=== PATIENT | female | born 1980 | race Two or more races ===

== ENCOUNTER 2024-08-23 07:35 | Emergency (ER) | payer MEDICAID, SELFPAY ==
[2024-08-23 07:37] VITALS: BMI 30.5
[2024-08-23 07:50] VITALS: BP 122/77; PULSE 66; RESP 16; TEMP 37.1; O2SAT 99
--- NOTE | 2024-08-23 08:45 | PD.EDRME ---
Rapid Medical Screening Exam RME Arrival date/time: 08/23/24 07:35 Chief Complaint: Abdominal Pain Time Seen by Provider: 08/23/24 08:30 Vital signs: Vital Signs Temperature 98.7 F 08/23/24 07:50 Pulse Rate 66 08/23/24 07:50 Respiratory Rate 16 08/23/24 07:50 Blood Pressure 122/77 08/23/24 07:50 Pulse Oximetry (%) 99 08/23/24 07:50 Oxygen Delivery Method Room Air 08/23/24 07:50 RME Narrative: 43-year-old patient presents emergency department with complaint of epigastric and right upper quadrant pain since June 2024. Patient states that she saw her PCP and had blood work done. She recently received results of her blood work and was told that it was unremarkable but she states her pain has persisted patient states she feels bloated with excessive belching but denies acid reflux. Patient also states that she feels that the pain starts in her right lower quadrant and migrates to her right upper quadrant. She denies any elevating or aggravating factors. She said her PCP told her to avoid acidic and spicy foods which she states she is done without remission of her pain. She denies fever or chills she denies bloody diarrhea she denies painful urination.
--- NOTE | 2024-08-23 08:48 | XR_ITS ---
Examination: CT abdomen and pelvis without contrast. Coronal 3-D reconstructions. Sagittal 2-D reconstructions. Date and time of exam:August 23, 2024 1227 hrs. Indications: Right lower abdominal pain nausea beginning one month ago CTDI: vol (mGy): 9.65 DLP: (mGycm): 471 Technique: Axial images of the abdomen have been obtained, 3 mm slice thickness Intravenous contrast material has not been administered. Low dose protocols were performed. One or more of the following dose reduction techniques were used; automated exposure control, adjustment of the mA and/or KV according to patient size, use of iterative reconstruction technique. Findings: 12 mm right lobe liver cyst No biliary tract dilatation No gallstones No pancreatic or adrenal mass No renal or ureteral calculi, no hydronephrosis Normal appendix, coronal image 60 No bowel obstruction No diverticulitis Enlarged fundus of uterus with dilated endometrial stripe No adnexal mass Urinary bladder intact Osseous structures intact Impression: Normal appendix No renal or ureteral calculi, no hydronephrosis No bowel obstruction or diverticulitis Enlarged fundus of uterus with dilated endometrial stripe, recommend pelvic sonography follow-up
--- NOTE | 2024-08-23 08:48 | XR_ITS ---
Examination: Abdomen sonogram, Limited Date and time of exam: August 23, 2024 0900 hrs. Indications: Right upper abdominal pain beginning 5 weeks ago Technique: Real-time inman scale transabdominal sonographic images of the upper abdomen obtained. Findings: Normal gallbladder Normal common bile duct 0.4 cm Pancreatic head 2.2 cm Liver 12.8 cm fatty infiltration 20 mm liver cyst no biliary tract dilatation Normal hepatopedal portal venous flow Patent IVC Impression: Normal gallbladder Normal common bile duct
[2024-08-23] MEDS: KETOROLAC INJ 60 MG/2 ML VIAL IM (09:27)
[2024-08-23 10:02] LABS: Basophils # (Auto) 0.1 Thou/mm3 (0.0-0.2); Basophils % (Auto) 1 % (0-2.5); Eosinophils # (Auto) 0.9 Thou/mm3 (0.0-0.5); Eosinophils % (Auto) 17 % (0-10); Hemoglobin 12.7 g/dL (12.0-16.0); Immature Granulocytes % (Auto) 0 % (0-0); Lymphocytes # (Auto) 1.7 Thou/mm3 (1.0-4.8); Lymphocytes % (Auto) 29 % (10-50); Mean Corpuscular HGB Conc 34.3 g/dl (31.0-37.0); Mean Corpuscular Hemoglobin 28.6 pg (25.0-35.0); Mean Corpuscular Volume 83 fL (80-100); Monocytes # (Auto) 0.4 Thou/mm3 (0.0-0.8); Monocytes % (Auto) 7 % (0-12); Neutrophils # (Auto) 2.7 Thou/mm3 (1.8-7.7); Neutrophils % (Auto) 47 % (37-80); Nucleated Red Blood Cell % 0 /100 WBC (0); Platelet Count 255 Thou/mm3 (140-440); RDW Standard Deviation 39.2 fL (36.4-46.3); Red Blood Count 4.44 Miln/mm3 (4.00-5.20); White Blood Count 5.7 Thou/mm3 (3.6-11.0)
[2024-08-23 10:06] LABS: Alanine Aminotransferase 12 U/L (10-49); Albumin/Globulin Ratio 2.2 (1.2-2.2); Alkaline Phosphatase 67 U/L (46-116); Anion Gap 8 (7-16); Aspartate Amino Transferase 10 U/L (0-34); BUN/Creatinine Ratio 16 Ratio (12-20); Bilirubin,Total 1.5 mg/dL (0.3-1.2); Blood Urea Nitrogen 13 mg/dL (9-23); Calcium 9.4 mg/dL (8.3-10.6); Calcium (Corrected) 9.4 mg/dL (8.5-10.1); Carbon Dioxide 24.6 mMol/L (20.0-31.0); Chloride 106 mMol/L (98-107); Creatinine (Component) 0.8 mg/dL (0.6-1.3); Estimated Creatinine Clearance 94.2 mL/min (>60); Globulin 2.3 gm/dL (2.3-3.5); Glucose 88 mg/dL (74-106); Lipase 42 U/L (12-53); Osmolality,Calculated 276 (275-295); Potassium 3.9 mMol/L (3.4-5.1); Sodium 139 mMol/L (136-145); Total Protein 7.3 gm/dL (5.7-8.2); eGFR > 60 See Note
[2024-08-23 10:37] LABS: Collection Type, Urine Voided
[2024-08-23 11:37] LABS: HCG Qualitative,Urine Negative
[2024-08-23 11:41] LABS: Bacteria,Urine Rare; Bilirubin,Urine Negative (Negative); Blood,Urine Negative (Negative); Clarity,Urine Clear (Clear/Hazy); Color,Urine Lt-Yellow (Lt Yel-Yel); Culture Indicated,Urine Not Indicated; Glucose, Urine Negative (Negative); Ketones,Urine Negative (Negative); Leukocyte Esterase,Urine Negative (Negative); Nitrite,Urine Negative (Negative); Protein,Urine Negative (Neg - Trace); RBC,Urine 2 /hpf (0-3); Specific Gravity,Urine 1.024 (1.001-1.035); Squamous Epithelial Cell,Urine 2 /hpf (0-5); Urobilinogen,Urine Negative mg/dL (0.0-1.0); WBC,Urine 1 /hpf (0-5)
[2024-08-23 12:03] VITALS: BP 107/60; PULSE 59; RESP 16; TEMP 36.4; O2SAT 100
--- NOTE | 2024-08-23 12:22 | PD.EDADULT ---
ED General RME/HPI General Chief complaint: Abdominal Pain Stated complaint: Abdominal pain x 3 weeks, Nausea Time Seen by Provider: 08/23/24 08:30 Arrival date/time: 08/23/24 07:35 CC: Epigastric abdominal pain HPI ongoing since June seen by PCP with blood workup with continues to have the pain patient denies fever chills currently no nausea pain is down to a 2 on a 10 scale denies diarrhea constipation or back pain. Patient is afebrile nontoxic-appearing not in any acute distress. RME / HPI RME / HPI narrative: 43-year-old patient presents emergency department with complaint of epigastric and right upper quadrant pain since June 2024. Patient states that she saw her PCP and had blood work done. She recently received results of her blood work and was told that it was unremarkable but she states her pain has persisted patient states she feels bloated with excessive belching but denies acid reflux. Patient also states that she feels that the pain starts in her right lower quadrant and migrates to her right upper quadrant. She denies any elevating or aggravating factors. She said her PCP told her to avoid acidic and spicy foods which she states she is done without remission of her pain. She denies fever or chills she denies bloody diarrhea she denies painful urination. Related Data Previous Rx's ?Medication ?Instructions ?Recorded famotidine 20 mg tablet 20 mg PO QDAY #30 tabs 08/23/24 Allergies Allergy/AdvReac Type Severity Reaction Status Date / Time No Known Allergies Allergy Verified 01/03/23 17:01 Review of Systems Review of Systems Narrative Review of Systems: GEN: No fever, no chills, no weight loss EYES: No discharge, no visual changes, no pain HEENT: No ear pain, no congestion, no sore throat PULM: No shortness of breath, no cough, no congestion CV: No chest pain, no dyspnea on exertion, no palpitations GI: No nausea, no vomiting, no diarrhea, + pain, no constipation : No frequency, no urgency, no dysuria MUSC/SKEL: No joint pain, no back pain SKIN: No rash PSYCH: No hallucinations, no depression HEME/LYMPH: No easy bleeding or bruising tendencies NEURO: No weakness, no headache Past Medical History Past Medical History CARDIAC: Negative Congestive Heart Failure RESPIRATORY: Negative Chronic Obstructive Pulmonary Disease (COPD) GASTROINTESTINAL: Positive Gastroesophageal Reflux Disease GENITOURINARY: Negative Renal Disease ENDOCRINE: Negative Diabetes Mellitus Type 1 or Diabetes Mellitus Type 2 Social History SMOKING STATUS: Never smoker ED Exam Narrative Physical exam: [General: Not in any acute distress Head normocephalic HEENT: Within acceptable limits Neck is supple nontender Chest equal chest rise nontender to palpation Respiratory: Clear to auscultation no wheezes crackles or rubs CV: Rate rhythm is regular no murmurs rubs or clicks Abdomen is soft mild epigastric tenderness with palpation no right upper or left upper quadrant pain. No lower abdominal pain with palpation. Back: No CVA tenderness no spinous process tenderness from cervical spine thoracic and lumbar spine Skin: Intact no petechiae rash induration ulceration or crepitus Extremities: Moving all extremity against resistance cap refill less than 2 seconds neurosensory intact Neuro: Awake alert oriented x3 Glascow coma 15 no focal deficits] Course Course Course Narrative: CC: Patient had significant relief from the GI cocktail, at this time the laboratory results and imaging is all negative for any acute finding patient be discharged home I suspect that this is all acid reflux. Patient will be started on famotidine advised to avoid greasy spicy fatty foods and do not eat for 2 hours before going to bed. Patient is in agreement with this plan. Quality Measures none Orders Category Date Time Status CT abdomen pelvis wo con Stat Exams 08/23/24 08:48 Completed US abdomen limited Stat Exams 08/23/24 08:48 Completed CBC Stat Lab 08/23/24 09:10 Completed CMP [Comprehensive Metabolic Panel] Stat Lab 08/23/24 09:10 Completed HCG Qualitative,Urine Stat Lab 08/23/24 10:18 Completed Lipase Stat Lab 08/23/24 09:10 Completed Urinalysis, C/S if Indicated Stat Lab 08/23/24 10:18 Completed Ketorolac Inj [Toradol Inj] Med 08/23/24 08:49 Discontinued 60 mg IM X1 ONE Lidocaine 2% Viscous [Xylocaine 2% Viscous] Med 08/23/24 12:21 Discontinued 15 ml PO X1 ONE mg Hyd/Al Hyd/El Susp [Maalox Susp] Med 08/23/24 12:21 Discontinued 30 ml PO X1 ONE Vital Signs Vital signs: Vital Signs Temperature 98.7 F 08/23/24 07:50 Pulse Rate 66 08/23/24 07:50 Respiratory Rate 16 08/23/24 07:50 Blood Pressure 122/77 08/23/24 07:50 Pulse Oximetry (%) 99 08/23/24 07:50 Oxygen Delivery Method Room Air 08/23/24 07:50 [facility] Patient data External records reviewed:: [facility] previous records Clinical information provided by:: patient Social determinants that could affect healthcare access:: none Patient has the following chronic illnesses:: None How is presenting disease/condition affected by chronic disease/condition?: uneffected by Evaluation data The following diagnostics were reviewed and interpreted by me:: lab results and radiology exam(s) Lab and/or radiology exams considered but not ordered:: CBC shows no acute leukocytosis anemia thrombocytopenia CMP shows no acute electrolyte imbalances renal impairment transaminitis or T. bili elevation Lipase is normal Ultrasound of the gallbladder is normal CBD is normal. Urine is negative for UTI Interpretation Summary: Gastritis Medications Medications considered but not ordered:: None Medication administrations:: Medication Administration History Discontinued Medications Al Hydrox/Mg Hydrox/Simethicone (Mg Hyd/Al Hyd/El (Maalox Reg) Susp 30 Ml Udc) 30 ml PO X1 ONE Stop: 08/23/24 12:22 Last Admin: 08/23/24 12:45 Dose: 30 ml Documented By: DO Ketorolac Tromethamine (Ketorolac Inj 60 Mg/2 Ml Vial) 60 mg IM X1 ONE Stop: 08/23/24 08:50 Last Admin: 08/23/24 09:27 Dose: 60 mg Documented By: AM Lidocaine HCl (Lidocaine Viscous 2% 15 Ml Udc) 15 ml PO X1 ONE Stop: 08/23/24 12:22 Last Admin: 08/23/24 12:45 Dose: 15 ml Documented By: DO None Consultations Consultation(s) initiated? (list below): No Diagnosis Differential Diagnosis ED Complaint MDM: Gastritis cholelithiasis pancreatitis Most likely diagnosis given after review of the tests above:: GERD Admission Indicated Admission indicated?: not indicated Explain why admission is indicated or not indicated:: Stable for outpatient follow-up Admission Request Was there a request for admission?: No Disposition Plan Disposition Plan: Discharge Discharge Attestation Discharge Attestation: The patient and all family members were given an opportunity to ask questions and understood the discharge instructions. Discharge instructions specifically effects, indications for sooner follow up or return to the emergency department, and the expected course of current diagnosis. Patient condition: Stable Medical Decision Making Differential Diagnosis Differential Diagnosis: Gastritis cholelithiasis pancreatitis Lab Data 08/23/24 09:10 08/23/24 09:10 Labs: Lab Results 08/23/24 08/23/24 Range/Units 09:10 10:18 WBC 5.7 (3.6-11.0) Thou/mm3 RBC 4.44 (4.00-5.20) Miln/mm3 Hgb 12.7 (12.0-16.0) g/dL Hct 37.0 (36.0-46.0) % MCV 83 (80-100) fL MCH 28.6 (25.0-35.0) pg MCHC 34.3 (31.0-37.0) g/dl RDW Std Deviation 39.2 (36.4-46.3) fL Plt Count 255 (140-440) Thou/mm3 Neut % (Auto) 47 (37-80) % Lymph % (Auto) 29 (10-50) % [place] % (Auto) 7 (0-12) % Eos % (Auto) 17 H (0-10) % Baso % (Auto) 1 (0-2.5) % Neut # (Auto) 2.7 (1.8-7.7) Thou/mm3 Lymph # (Auto) 1.7 (1.0-4.8) Thou/mm3 [place] # (Auto) 0.4 (0.0-0.8) Thou/mm3 Eos # (Auto) 0.9 H (0.0-0.5) Thou/mm3 Baso # (Auto) 0.1 (0.0-0.2) Thou/mm3 Immature Gran # (Auto) 0.00 (0.00-0.00) Thou/mm3 Absolute Nucleated RBC 0.00 (0.00-0.00) Thou/mm3 Immature Gran % 0 (0-0) % Nucleated RBC % 0 (0) /100 WBC Sodium 139 (136-145) mMol/L Potassium 3.9 (3.4-5.1) mMol/L Chloride 106 (98-107) mMol/L Carbon Dioxide 24.6 (20.0-31.0) mMol/L Anion Gap 8 (7-16) BUN 13 (9-23) mg/dL Creatinine 0.8 (0.6-1.3) mg/dL Estim Creat Clear Calc 94.2 (>60) mL/min eGFR > 60 (60 - ) See Note BUN/Creatinine Ratio 16 (12-20) Ratio Glucose 88 (74-106) mg/dL Calculated Osmolality 276 (275-295) Calcium 9.4 (8.3-10.6) mg/dL Corrected Calcium 9.4 (8.5-10.1) mg/dL Total Bilirubin 1.5 H (0.3-1.2) mg/dL AST 10 (0-34) U/L ALT 12 (10-49) U/L Alkaline Phosphatase 67 (46-116) U/L Total Protein 7.3 (5.7-8.2) gm/dL Albumin 5.0 (3.5-5.0) gm/dL Globulin 2.3 (2.3-3.5) gm/dL Albumin/Globulin Ratio 2.2 (1.2-2.2) Lipase 42 (12-53) U/L Ur Collection Type Voided Urine Color Lt-Yellow (Lt Yel-Yel) Urine Clarity Clear (Clear/Hazy) Urine pH 6.0 (5.0-7.0) Ur Specific [place] 1.024 (1.001-1.035) Urine Protein Negative (Neg - Trace) Urine Glucose (UA) Negative (Negative) Urine Ketones Negative (Negative) Urine Blood Negative (Negative) Urine Nitrite Negative (Negative) Urine Bilirubin Negative (Negative) Urine Urobilinogen (Auto) Negative (0.0-1.0) mg/dL Ur Leukocyte Esterase Negative (Negative) Urine RBC 2 (0-3) /hpf Urine WBC 1 (0-5) /hpf Ur Squamous Epith Cells 2 (0-5) /hpf Urine Bacteria Rare (None) Ur Culture Indicated? Not Indicated Urine HCG, Qual Negative Discharge Plan Plan Patient Disposition: HOME (Self Care) Prescriptions/Referrals Prescriptions/Med Rec: New famotidine 20 mg tablet 20 mg PO QDAY Qty: 30 1RF Referrals: Ezequiel Holliday MD [Primary Care Provider] - In 1 week Problem List Clinical Impression: Acid reflux Patient/Caregiver Discharge Instructions Education Materials: ED GERD (Adult), ED Diet, [place] (Adult) Additional Instructions: Avoid greasy spicy and fatty foods, avoid eating any foods 2 hours before you go to bed allowing her stomach empty take the medications as prescribed follow-up with your doctor as suggested. If is worsening of symptoms in spite of these interventions return the emergency room immediately for further evaluation. Print Language: Samoan Stand Alone Forms: Sonia Award Info., Patient Portal Info Letter, Work/School Release PA/CLAY THROWER Supervising Physician PA/CLAY THROWER Supervising Physician: Luis E Angelo ENP
[2024-08-23] MEDS: MG HYD/AL HYD/SIME (Maalox Reg) SUSP 30 ML UDC PO (12:45)
[2024-08-23] MEDS: LIDOCAINE VISCOUS 2% 15 ML UDC PO (12:45)
== END 2024-08-23 14:34 | disposition home or self-care (01) ==
PROVIDERS: Physician Assistant; Emergency Provider Emergency Medicine; PCP Family Medicine
DX: K21.9 Gastro-esophageal reflux disease without esophagitis (principal)
CPT/HCPCS: 36415; 74176; 76705; 80053; 81001; 81025; 83690; 85025; 96372; 99284; J1885; J3490; A9270